=== PATIENT | male | born 1955 | race Caucasian/White ===

== ENCOUNTER → 2021-06-19 10:40 | Outpatient (CLI) | payer OTHER, SELFPAY ==
--- NOTE | 2021-06-19 10:43 | DI.RAD.S_ITS ---
PROCEDURE: XR KNEE LT 3V INDICATIONS: chronic left knee pain TECHNIQUE: 3 views of the knee were acquired. COMPARISON: None. FINDINGS: Bones: No fractures or dislocations. No suspicious bony lesions. Mild appearance of periosteal reaction is noted within the proximal fibula. No priors are available for comparison. There is [id number] medial and patellofemoral compartment narrowing. Minimal periarticular osteophytes. No erosions. Soft tissues: Mild joint effusion. No suspicious soft tissue calcifications. IMPRESSION: Medial and patellofemoral arthritic changes as above. Mild appearance of periosteal reaction within the proximal femur of indeterminate age. No priors are available for comparison. If clinical concern persists, bone scan may be obtained for further evaluation. Dictated by: Jeanine Loyola M.D. on 06/19/2021 at 15:29 Approved by: Jeanine Loyola M.D. on 06/19/2021 at 15:30
== END ==
PROVIDERS: Family Provider Family Medicine; PCP Family Medicine; Referring Provider Family Medicine; Visit Provider Family Medicine
DX: M25.562 Pain in left knee (principal); G89.29 Other chronic pain
CPT/HCPCS: 73562

== ENCOUNTER → 2021-10-21 13:30 | Outpatient (CLI) | payer OTHER, SELFPAY ==
[2021-10-21 15:14] LABS: Add Manual Diff / Slide Review NO; Basophils Absolute Auto 0 /uL (0-100); Basophils Percent Auto 0.3 % (0-2); Eosinophils Absolute Auto 0 /uL (0-450); Eosinophils Percent Auto 0.5 % (2-4); Hematocrit 43.8 % (41-53); Hemoglobin 15.4 g/dL (13.5-17.5); Lymphocytes Absolute Auto 1400 /uL (1100-4500); Lymphocytes Percent Auto 23.8 % (25-40); Mean Corpuscular HGB Conc 35.1 % (30-36); Mean Corpuscular Hemoglobin 32.2 PG (26-34); Mean Corpuscular Volume 91.8 fL (80-100); Monocytes Absolute Auto 400 /uL (0-900); Monocytes Percent Auto 7.3 % (3-14); Neutrophils Absolute Auto 4100 /uL (1500-7000); Neutrophils Percent Auto 68.1 % (50-75); Platelet Count 230 X10^3/uL (150-400); Red Blood Cell Count 4.78 X10^6/uL (4.5-5.9); Red Cell Distribution Width 13.6 % (11.6-14.8)
[2021-10-21 15:44] LABS: Alanine Aminotransferase 24 IU/L (<50); Albumin 4.6 g/dL (3.5-5.0); Albumin Globulin Ratio 1.5 (1.0-2.8); Alkaline Phosphatase 83 U/L (38-126); Aspartate Aminotransferase 28 IU/L (17-59); Bilirubin Total 0.4 mg/dL (0.2-1.3); Blood Urea Nitrogen 13 mg/dL (9-20); Calcium 9.1 mg/dL (8.4-10.2); Carbon Dioxide 27 mmol/L (22-32); Chloride 104 mmol/L (98-107); Cholesterol 201 mg/dL (140-199); Estimated Glomerular Filt Rate > 60 mL/min (>60); Glucose 64 mg/dL (80-110); HDL Cholesterol 41 mg/dL (40-60); HEMOLYSIS 22 (0-50); LDL Cholesterol Calculated 97 mg/dL (<100); Potassium 4.3 mmol/L (3.4-5.1); Sodium 140 mmol/L (137-145); Total Protein 7.6 g/dL (6.3-8.2); Triglycerides 315 mg/dL (35-150)
[2021-10-21 16:14] LABS: Prostate Specific Antigen Scrn 1.13 ng/mL (0.1-4.0); TSH w/ Reflex to FT4 1.51 uIU/mL (0.47-4.68)
[2021-10-22 11:24] LABS: Hemoglobin A1C% w Est Avg Glu 5.4 % (4.0-6.0)
== END ==
PROVIDERS: Family Provider Family Medicine; PCP Family Medicine; Referring Provider Family Medicine; Visit Provider Family Medicine
DX: F41.8 Other specified anxiety disorders (principal); G89.4 Chronic pain syndrome; N40.0 Benign prostatic hyperplasia without lower urinary tract symptoms; Z12.5 Encounter for screening for malignant neoplasm of prostate; R73.9 Hyperglycemia, unspecified
CPT/HCPCS: 36415; 80053; 80061; 83036; 84443; 85025; G0103

== ENCOUNTER → 2021-10-30 08:59 | Outpatient (CLI) | payer OTHER, SELFPAY ==
[2021-10-31 12:12] LABS: Fecal Immunochemical Test Positive (Negative)
== END ==
PROVIDERS: Family Provider Family Medicine; PCP Family Medicine; Referring Provider Family Medicine; Visit Provider Family Medicine
DX: Z12.11 Encounter for screening for malignant neoplasm of colon (principal)
CPT/HCPCS: 82274

== ENCOUNTER → 2022-01-14 09:25 | Outpatient (CLI) | payer OTHER, SELFPAY ==
[2022-01-14 13:07] LABS: COVID19 -Nasal RAPID Negative (Negative)
== END ==
PROVIDERS: Family Provider Family Medicine; PCP Family Medicine; Visit Provider Surgery
DX: Z20.822 Contact with and (suspected) exposure to COVID-19 (principal); Z01.812 Encounter for preprocedural laboratory examination
CPT/HCPCS: 87635; C9803

== ENCOUNTER 2022-01-15 13:15 | Day surgery (SDC) | payer OTHER, SELFPAY ==
--- NOTE | 2022-01-15 | PATH_ITS ---
[facility] Accession Number: [id number] . 01 Material submitted: . PART A: colon - ASCENDING COLON POLYP PART B: colon - PROXIMAL TRANSVERSE COLON POLYP . 01 Diagnosis: A. Ascending Colon Polyp, Biopsy: Tubular adenoma. . B. Proximal Transverse Colon Polyp, Biopsy: Tubular adenoma. MRV 01/19/2022 1138 Local . 01 Electronically signed: . Santana Mistry MD, PhD, Pathologist NPI- [id number] . 01 Gross description: . Part A: ASCENDING COLON POLYP: Received in formalin are 2 fragment(s) of navarro, soft tissue measuring 0.5 x 0.3 x 0.2 cm to 0.4 x 0.2 x 0.2 cm submitted entirely in 1 cassette(s) Part B: PROXIMAL TRANSVERSE COLON POLYP: Received in formalin are multiple fragment(s) of navarro, soft tissue measuring 0.8 x 0.5 x 0.1 cm in aggregate submitted entirely in 1 cassette(s) /CPE 01/16/2022 0806 Local . 01 Pathologist provided ICD-10: D12.2, D12.3 . 01 CPT . 567976, 377403 Specimen Comment: A courtesy copy of this report has been sent to [phone] Performed at: 01 [facility] [address] [place] [address], [place], [place] [id number] MD Krishna Jj MD Phone: [phone]
[2022-01-15 13:29] VITALS: BP 125/70; PULSE 77; RESP 16; TEMP 36.4; O2SAT 97; BMI 31.7
[2022-01-15] MEDS: LACTATED RINGERS 1,000 ML 150 ML IV (13:36)
--- NOTE | 2022-01-15 13:45 | PM.HP.1 ---
History of Present Illness History of Present Illness Date Patient Seen: 01/15/22 Time Patient Seen: 13:46 Chief complaint: SDC Narrative: Hardeep is a 66-year-old man who is here for a colonoscopy for colon cancer screening. He is never had one before. He has no known family history of colon cancer. Patient History Medical History (Updated 01/15/22 @ 13:46 by Elvis Nunn MD) BPH (benign prostatic hyperplasia) Chronic allergic rhinitis Chronic pain syndrome Chronic sinusitis Mixed anxiety and depressive disorder Osteoarthritis of left knee Family & Social History Social History: household members none Tobacco & Substance use: Smoking Status Former smoker alcohol intake never Substance Use Type marijuana Meds Home Medications and Allergies Home Medications Medication Instructions Recorded Confirmed Type aripiprazole 15 mg tablet 15 mg PO DAILY 06/19/21 01/15/22 History clonazepam 0.5 mg tablet 0.5 mg PO TID 06/19/21 01/15/22 History venlafaxine 150 mg 150 mg PO DAILY 06/19/21 10/21/21 History capsule,extended release 24 hr diclofenac sodium 1 % topical gel 2 g topical QID #100 grams 07/02/21 10/21/21 Rx (Voltaren Arthritis Pain) tamsulosin 0.4 mg capsule 0.4 mg PO BEDTIME #90 caps 11/10/21 01/15/22 Rx sodium sul 1.479 gram-potas ch See Rx Instructions PO PER PKG DIR 12/30/21 Rx 0.188 gram-magnes sul 0.225 gram #24 tabs tablet (Sutab) cetirizine 10 mg tablet 10 mg PO BEDTIME 01/14/22 01/15/22 History fluticasone propionate 50 2 spray intranasal DAILY 01/14/22 01/14/22 History mcg/actuation nasal spray,suspension Allergies Allergy/AdvReac Type Severity Reaction Status Date / Time No Known Drug Allergies Allergy Verified 01/15/22 13:35 Exam Vital Signs (past 8 hours): - 01/15/22 13:29 Temperature 97.6 F Pulse Rate 77 Respiratory Rate 16 Blood Pressure 125/70 Pulse Oximetry 97 Oxygen Delivery Method Room Air Oxygen Delivery Method Room Air Const General: No acute distress Assessment & Plan Assessment and plan (1) Colon cancer screening: Status: Acute Plan We reviewed the risks and benefits of colonoscopy for colon cancer screening and he would like to proceed Time Spent With Patient Critical Care time: I spent a total of [] minutes of critical care time on this patient's care today; this time is exclusive of procedural time.
[2022-01-15] MEDS: fentaNYL 100 MCG/2 ML INJ 175 MCG IV (14:01)
[2022-01-15] MEDS: MIDAZOLAM 5 MG/5 ML VIAL 8 MG IV (14:01)
--- NOTE | 2022-01-15 14:23 | PM.OP.COLON ---
Operative Date/Time/Diagnoses Date of procedure: 01/15/22 Time of procedure: 14:23 Pre-op diagnosis: Colon cancer screening Post-op diagnosis: same Procedure & Clinicians Study performed: Colonoscopy Same procedure as scheduled: Yes Surgeon: Elvis Nunn Procedure Notes Procedure in detail: Surgeon: Elvis Nunn MD Procedure: The patient was brought to the endoscopy suite, placed in left lateral decubitus position. The patient was connected to monitoring devices. A time-out was performed. Sedation was administered. Once the patient was adequately sedated, a digital rectal exam was performed and was normal. The scope was then inserted and advanced to the cecum where the appendiceal orifice was identified and photographed. The scope was then slowly withdrawn over greater than 6 minutes. The mucosa was thoroughly inspected. There was a 5 mm polyp in the ascending colon removed with a cold snare. There was 1 cm sessile polyp in the proximal transverse colon removed with hot snare following a saline lift. Because of its location in the proximal transverse colon tattoo was placed adjacent to the polypectomy site. The remainder of the colon was unremarkable. The scope was retroflexed in the rectum. No abnormalities were noted in the rectum. The scope was straightened and removed. The patient was awakened and brought to recovery. Versed: 8 mg Fentanyl: 175 mcg EBL: 5 mL Findings: A 5 mm ascending colon polyp and 1 cm proximal transverse colon polyp Post-procedure Recommendations: Will call with biopsy results Disposition: PACU
[2022-01-15 14:26] VITALS: BP 114/62; PULSE 61; RESP 16; TEMP 36.7; O2SAT 99
[2022-01-15 14:35] VITALS: BP 121/69; PULSE 67; RESP 16; O2SAT 96
[2022-01-15 14:43] VITALS: BP 114/59; PULSE 59; RESP 16; TEMP 36.4; O2SAT 97
[2022-01-15 14:47] VITALS: BP 115/65; PULSE 59; RESP 16; TEMP 36.7; O2SAT 96
== END 2022-01-15 15:05 | disposition home or self-care (01) ==
PROVIDERS: Family Provider Family Medicine; PCP Family Medicine; Referring Provider Surgery; Visit Provider Surgery
PROC: 0DJD8ZZ Inspection of Lower Intestinal Tract, Via Natural or Artificial Opening Endoscopic (ICD-10-PCS; CPT 45378; principal; 2022-01-15 14:30)
DX: Z12.11 Encounter for screening for malignant neoplasm of colon (principal); D12.2 Benign neoplasm of ascending colon; D12.3 Benign neoplasm of transverse colon
CPT/HCPCS: 45385; 45381; J2250; J3010

== ENCOUNTER → 2022-03-03 14:19 | Outpatient (CLI) | payer OTHER, MEDICARE, SELFPAY ==
[2022-03-03 16:44] LABS: Alanine Aminotransferase 23 IU/L (<50); Albumin 4.5 g/dL (3.5-5.0); Albumin Globulin Ratio 1.3 (1.0-2.8); Alkaline Phosphatase 83 U/L (38-126); Aspartate Aminotransferase 27 IU/L (17-59); BUN Creatinine Ratio 15.7 (6-22); Bilirubin Total 0.4 mg/dL (0.2-1.3); Blood Urea Nitrogen 14 mg/dL (9-20); C-Reactive Protein Quant < 0.5 mg/dL (<1.0); Carbon Dioxide 26 mmol/L (22-32); Chloride 103 mmol/L (98-107); Estimated Glomerular Filt Rate > 60 mL/min (>60); Globulin 3.5 g/dL (1.7-4.1); Glucose 66 mg/dL (80-110); HEMOLYSIS < 15 (0-50); Potassium 3.8 mmol/L (3.4-5.1); Sodium 139 mmol/L (137-145); Uric Acid 5.2 mg/dL (3.5-8.5)
== END ==
PROVIDERS: Family Provider Family Medicine; PCP Family Medicine; Referring Provider Family Medicine; Visit Provider Family Medicine
DX: M10.9 Gout, unspecified (principal); R19.7 Diarrhea, unspecified; R25.2 Cramp and spasm
CPT/HCPCS: 36415; 80053; 84550; 86140

== ENCOUNTER → 2022-03-05 10:27 | Outpatient (CLI) | payer OTHER, SELFPAY ==
[2022-03-09 16:08] LABS: Calprotectin, Stool < 16 ug/g (0-120)
== END ==
PROVIDERS: Family Provider Family Medicine; PCP Family Medicine; Referring Provider Family Medicine; Visit Provider Family Medicine
DX: R19.7 Diarrhea, unspecified (principal); R25.2 Cramp and spasm
CPT/HCPCS: 83993

== ENCOUNTER → 2022-10-20 13:01 | Outpatient (CLI) | payer OTHER, SELFPAY ==
[2022-10-20 13:37] LABS: Add Manual Diff / Slide Review NO; Basophils Absolute Auto 0 /uL (0-100); Basophils Percent Auto 0.5 % (0-2); Eosinophils Absolute Auto 0 /uL (0-450); Eosinophils Percent Auto 0.3 % (2-4); Hematocrit 43.1 % (41-53); Hemoglobin 14.9 g/dL (13.5-17.5); Lymphocytes Absolute Auto 1200 /uL (1100-4500); Lymphocytes Percent Auto 18.6 % (25-40); Mean Corpuscular HGB Conc 34.5 % (30-36); Mean Corpuscular Hemoglobin 32.5 PG (26-34); Mean Corpuscular Volume 94.1 fL (80-100); Monocytes Absolute Auto 200 /uL (0-900); Monocytes Percent Auto 3.9 % (3-14); Neutrophils Absolute Auto 4900 /uL (1500-7000); Neutrophils Percent Auto 76.7 % (50-75); Platelet Count 216 X10^3/uL (150-400); Red Blood Cell Count 4.58 X10^6/uL (4.5-5.9); Red Cell Distribution Width 13.7 % (11.6-14.8); White Blood Cell Count 6.4 X10^3/uL (4.5-11.0)
[2022-10-20 14:15] LABS: Alanine Aminotransferase 19 IU/L (<50); Albumin 4.2 g/dL (3.5-5.0); Albumin Globulin Ratio 1.6 (1.0-2.8); Alkaline Phosphatase 78 U/L (38-126); Aspartate Aminotransferase 19 IU/L (17-59); BUN Creatinine Ratio 13.5 (6-22); Bilirubin Total 0.3 mg/dL (0.2-1.3); Blood Urea Nitrogen 12 mg/dL (9-20); Calcium 8.7 mg/dL (8.4-10.2); Carbon Dioxide 31 mmol/L (22-32); Chloride 101 mmol/L (98-107); Cholesterol 200 mg/dL (140-199); Estimated Glomerular Filt Rate > 60 mL/min (>60); Globulin 2.7 g/dL (1.7-4.1); Glucose 109 mg/dL (80-110); HDL Cholesterol 42 mg/dL (40-60); HEMOLYSIS < 15 (0-50); LDL Cholesterol Calculated 125 mg/dL (<100); Potassium 4.1 mmol/L (3.4-5.1); Sodium 138 mmol/L (137-145); Total Protein 6.9 g/dL (6.3-8.2); Triglycerides 163 mg/dL (35-150)
[2022-10-20 14:38] LABS: Prostate Specific Antigen Scrn 1.22 ng/mL (0.1-4.0)
[2022-10-20 14:39] LABS: TSH w/ Reflex to FT4 0.98 uIU/mL (0.47-4.68)
== END ==
PROVIDERS: Family Provider Family Medicine; PCP Family Medicine; Referring Provider Family Medicine; Visit Provider Family Medicine
DX: E16.2 Hypoglycemia, unspecified (principal); E78.5 Hyperlipidemia, unspecified; F41.8 Other specified anxiety disorders; Z12.5 Encounter for screening for malignant neoplasm of prostate
CPT/HCPCS: 36415; 80053; 80061; 84443; 85025; G0103

== ENCOUNTER → 2022-10-29 07:36 | Outpatient (CLI) | payer OTHER, SELFPAY | PROVIDERS: Family Provider Family Medicine; PCP Family Medicine; Referring Provider Family Medicine; Visit Provider Family Medicine | DX: R00.2 Palpitations (principal); Z00.8 Encounter for other general examination | CPT/HCPCS: 93246 ==

== ENCOUNTER → 2023-01-11 06:46 | Outpatient (CLI) | payer OTHER, SELFPAY ==
--- NOTE | 2023-01-11 06:48 | DI.RAD.S_ITS ---
PROCEDURE: XR CHEST 2V INDICATIONS: chest discomfort TECHNIQUE: 2 views of the chest were acquired. COMPARISON: None. FINDINGS: Surgical changes and devices: None. Lungs and pleura: Lungs are clear. No pleural effusions or pneumothorax. Mediastinum: Mediastinal contours are normal. Heart size is normal. Bones and chest wall: No suspicious bony abnormalities. Soft tissues appear unremarkable. IMPRESSION: Normal two view chest x-ray Approved by: Phong Orourke M.D. on 01/11/2023 at 15:50
[2023-01-13 19:37] LABS: Fecal Immunochemical Test Positive (Negative)
== END ==
PROVIDERS: Family Provider Family Medicine; PCP Family Medicine; Referring Provider Family Medicine; Visit Provider Family Medicine
DX: R07.89 Other chest pain (principal); Z12.11 Encounter for screening for malignant neoplasm of colon
CPT/HCPCS: 71046; 82274

== ENCOUNTER → 2023-01-18 13:52 | Outpatient (CLI) | payer OTHER, SELFPAY ==
--- NOTE | 2023-01-22 18:31 | DI.NM.S_ITS ---
DATE OF SERVICE: 01/18/2023 PROCEDURE PERFORMED: Exercise treadmill stress and rest myocardial perfusion imaging with gating to assess ejection fraction and regional wall motion. ORDERING PROVIDER: Dr. Noah Haney. INDICATIONS: The patient is a 67-year-old male with anxiety, palpitations, and exertional back pain. EXERCISE TREADMILL TESTING: The patient was able to exercise for 5 minutes on a standard Baldo protocol with an additional 52 seconds at a reduced rate, suggesting moderate-severely reduced exercise capacity with an SCARLET of +32%. He had a normal heart rate and blood pressure response to exercise, achieving a maximum heart rate of 137 bpm (88% of his predicted maximum). He had no chest discomfort, back pain, or other anginal symptoms. His resting ECG shows sinus rhythm with normal ST- segment. With stress, there are no significant ST-segment shifts or arrhythmias. At 3 minutes, 50 seconds of exercise at a heart rate of 134 bpm, 27.5 millicuries of technetium-99m Myoview was injected and he was imaged 20 minutes later using a gated SPECT acquisition protocol. Four days earlier, while at rest, he had been injected with 26.6 millicuries of technetium-99m Myoview and was imaged 15 minutes later, again using a gated SPECT acquisition protocol. FINDINGS: 1. There is fairly good myocardial tracer uptake without any obvious artifacts. While the lung-heart ratio is mildly elevated at 0.44, which can be a sign of pulmonary congestion, this is not visually evident and is nonspecific. The TID ratio is normal at 0.93. 2. Quantitated gated SPECT: Post-stress ejection fraction is 69% without any focal wall motion abnormality. Resting ejection fraction is 62% with a high normal end-diastolic volume of 134 mL. 3. Myocardial perfusion imaging: Post-stress supine images show a fairly normal perfusion pattern with a slight defect in the inferior wall that resolves on the prone images, consistent with diaphragmatic attenuation. The resting images show an identical perfusion pattern without any areas of improvement. IMPRESSION: 1. Normal myocardial perfusion study. 2. Subtle, fixed inferior defect that resolves with prone imaging, consistent with diaphragmatic attenuation. There is no compelling evidence for any myocardial ischemia or previous myocardial infarction. 3. Normal left ventricular systolic function without any focal wall motion abnormality and borderline elevated left ventricular volumes. While the lung-heart ratio is mildly elevated at 0.44, which can be a sign of pulmonary congestion, this is not visually evident and is nonspecific. Clinical correlation is recommended. 4. Moderate-severely reduced exercise capacity without angina or ECG changes of ischemia. No arrhythmias were seen. Noah Heard - DEVAN/paul/krystina doc#: [id number]/job#: [id number] dd: 01/22/2023 16:24:00 dt: 01/22/2023 18:09:00 DICTATING MD/COPIES TO: Dejon Lloyd MD; Noah Haney, EWELINA MNE: ALYSA;
== END ==
PROVIDERS: Family Provider Family Medicine; PCP Family Medicine; Referring Provider Family Medicine; Visit Provider Family Medicine
DX: R00.2 Palpitations (principal); R07.89 Other chest pain; M54.9 Dorsalgia, unspecified
CPT/HCPCS: 78452; 93017; A9502

== ENCOUNTER 2023-01-28 12:53 | Day surgery (SDC) | payer OTHER, SELFPAY ==
[2023-01-28 13:40] VITALS: BP 142/86; PULSE 83; RESP 16; TEMP 36.2; O2SAT 95; BMI 29.5
[2023-01-28] MEDS: LACTATED RINGERS 1,000 ML 84 ML IV (13:40)
--- NOTE | 2023-01-28 14:58 | PM.HP.1 ---
History of Present Illness History of Present Illness Date Patient Seen: 01/28/23 Time Patient Seen: 14:58 Chief complaint: [facility] Narrative: Adolfo is a 67-year-old man who is here for colonoscopy due to a positive fit test. He had a colonoscopy last year with 2 polyps removed 1 of which was 1 cm. [facility] Medical History (Updated 01/28/23 @ 14:59 by Elvis Nunn MD) BPH (benign prostatic hyperplasia) Chronic allergic rhinitis Chronic pain syndrome Chronic sinusitis Hypoglycemia Mixed anxiety and depressive disorder Osteoarthritis of left knee Social History household members: none Smoking Status: Former smoker alcohol intake: never Meds Home Medications and Allergies Home Medications Medication Instructions Recorded Confirmed Type aripiprazole 15 mg tablet 15 mg PO DAILY 06/19/21 01/28/23 History venlafaxine 150 mg 150 mg PO DAILY 06/19/21 01/28/23 History capsule,extended release 24 hr diclofenac sodium 1 % topical gel 2 g topical QID #100 grams 07/02/21 12/31/22 Rx (Voltaren Arthritis Pain) tamsulosin 0.4 mg capsule 0.4 mg PO BID #180 caps 08/13/22 01/28/23 Rx metoprolol succinate 25 mg 12.5 mg PO DAILY #45 tabs 12/31/22 01/28/23 Rx tablet,extended release 24 hr sodium sul 1.479 gram-potas ch See Rx Instructions PO PER PKG DIR 01/18/23 Rx 0.188 gram-magnes sul 0.225 gram #24 tabs tablet (Sutab) Allergies Allergy/AdvReac Type Severity Reaction Status Date / Time No Known Drug Allergies Allergy Verified 01/28/23 13:52 Exam Vital Signs (past 8 hours): - 01/28/23 13:40 Temperature 97.2 F L Pulse Rate 83 Respiratory Rate 16 Blood Pressure 142/86 H Pulse Oximetry 95 Oxygen Delivery Method Room Air Oxygen Delivery Method Room Air Const General: healthy appearing Assessment & Plan Assessment and plan (1) Positive FIT (fecal immunochemical test): Status: Acute Plan We reviewed the risks and benefits of colonoscopy for a positive FIT test and he would like to proceed.
--- NOTE | 2023-01-28 15:30 | PM.OP.COLON ---
Operative Date/Time/Diagnoses Date of procedure: 01/28/23 Time of procedure: 15:30 Pre-op diagnosis: History of polyps and positive fit test Post-op diagnosis: same Procedure & Clinicians Study performed: Colonoscopy Same procedure as scheduled: Yes Surgeon: Elvis Nunn Procedure Notes Procedure in detail: Surgeon: Elvis Nunn MD Anesthesia: Prasanth Hood CRNA Procedure: The patient was brought to the endoscopy suite, placed in left lateral decubitus position. The patient was connected to monitoring devices. A time-out was performed. Sedation was administered. Once the patient was adequately sedated, a digital rectal exam was performed and was normal. The scope was then inserted and advanced to the cecum where the appendiceal orifice was identified and photographed. The scope was then slowly withdrawn over greater than 6 minutes. The mucosa was thoroughly inspected. The area with tattoo ink in the transverse colon was visualized and photographed. No additional polypoid tissue was noted. The scope was retroflexed in the rectum. No other abnormalities were seen. The scope was straightened and removed. The patient was awakened and brought to recovery. Scope withdrawal time: 7 minutes Sedation time: 11 minutes EBL: 0 Findings: Normal colon Post-procedure Recommendations: Colonoscopy in 5 years Disposition: PACU
[2023-01-28 15:34] VITALS: BP 95/58; PULSE 57; RESP 19; TEMP 36.4; O2SAT 97
[2023-01-28 15:40] VITALS: BP 94/62; PULSE 60; RESP 17; O2SAT 97
[2023-01-28 15:45] VITALS: BP 101/64; PULSE 94; RESP 17; TEMP 36.4; O2SAT 98
== END 2023-01-28 16:24 | disposition home or self-care (01) ==
PROVIDERS: Family Provider Family Medicine; PCP Family Medicine; Referring Provider Surgery; Visit Provider Surgery
PROC: 0DJD8ZZ Inspection of Lower Intestinal Tract, Via Natural or Artificial Opening Endoscopic (ICD-10-PCS; CPT 45378; principal; 2023-01-28 14:15)
DX: Z12.11 Encounter for screening for malignant neoplasm of colon (principal); Z86.010 Personal history of colon polyps; R19.5 Other fecal abnormalities
CPT/HCPCS: G0105; J2704

== ENCOUNTER → 2023-04-27 13:20 | Outpatient (CLI) | payer OTHER, SELFPAY ==
--- NOTE | 2023-04-27 13:22 | DI.RAD.S_ITS ---
PROCEDURE: XR HAND LT MIN 3V INDICATIONS: pain between 2/3 digit for 3 weeks TECHNIQUE: 3 views of the hand(s) acquired. COMPARISON: None. FINDINGS: Bones: No fractures or dislocations. Carpal bones are normally aligned. No suspicious bony lesions. Interphalangeal joint space narrowing with osteophytosis. Soft tissues: No suspicious soft tissue calcifications. IMPRESSION: No acute bony abnormality. Mild interphalangeal osteoarthritis, within normal limits for age. Dictated by: Marco Caballero M.D. on 04/27/2023 at 16:08 Approved by: Marco Caballero M.D. on 04/27/2023 at 16:09
== END ==
PROVIDERS: Family Provider Family Medicine; PCP Family Medicine; Referring Provider Physician Assistant; Visit Provider Physician Assistant
DX: M79.642 Pain in left hand (principal); M19.042 Primary osteoarthritis, left hand
CPT/HCPCS: 73130

== ENCOUNTER → 2023-05-05 15:18 | Outpatient (CLI) | payer OTHER, SELFPAY ==
--- NOTE | 2023-05-05 15:20 | DI.RAD.S_ITS ---
PROCEDURE: XR HAND LT MIN 3V INDICATIONS: constant pain proximal base of 1st or 2nd digit CMC joint TECHNIQUE: 3 views of the hand(s) acquired. COMPARISON: [facility], , XR HAND LT MIN 3V, 04/27/2023, 14:37. FINDINGS: Bones: No fractures or dislocations. Carpal bones are normally aligned. No suspicious bony lesions. Interphalangeal joint space narrowing with osteophytosis. Soft tissues: No suspicious soft tissue calcifications. IMPRESSION: No acute bony abnormality. Mild interphalangeal osteoarthritis. Dictated by: Marco Caballero M.D. on 05/05/2023 at 17:19 Approved by: Marco Caballero M.D. on 05/05/2023 at 17:20
== END ==
PROVIDERS: Family Provider Family Medicine; PCP Family Medicine; Referring Provider Physician Assistant; Visit Provider Physician Assistant
DX: M19.042 Primary osteoarthritis, left hand (principal); M79.642 Pain in left hand
CPT/HCPCS: 36415; 73130; 84550

== ENCOUNTER 2023-06-25 12:11 | Emergency (ER) | payer OTHER, MEDICAID, SELFPAY ==
[2023-06-25 12:27] VITALS: BP 133/69; PULSE 63; RESP 20; TEMP 36.5; O2SAT 95; BMI 28.0
[2023-06-25 12:31] VITALS: PULSE 61; O2SAT 99
--- NOTE | 2023-06-25 12:33 | ED_ITS ---
HPI - General Adult General Chief complaint: Arrhythmia/Palpitations Stated complaint: low heart rate Time Seen by Provider: 06/25/23 12:26 Source: patient Mode of arrival: Ambulatory Limitations: no limitations History of Present Illness HPI narrative: Patient is a 68-year-old male who is here for evaluation of a low heart rate. He states that at night when he is sleeping his Apple watch records on his phone that his heart rates are dropping into the 40s and 50s. He is asymptomatic from this. He has no chest pain, lightheadedness, shortness of breath or exercise intolerance. He has not on any medications that block his heart rate. He has had palpitations in the past. Has seen Cardiology. He is never worn a Holter monitor. His low heart rate has been going on for the past week. He contacted his gastroenterology nurse who he saw for the palpitations who advised that he come to the emergency department for evaluation. Related Data Home Medications Medication Instructions Recorded Confirmed aripiprazole 15 mg tablet 15 mg PO DAILY 06/19/21 05/05/23 venlafaxine 150 mg 150 mg PO DAILY 06/19/21 05/05/23 capsule,extended release 24 hr latanoprost 0.005 % eye drops drp EYE-BOTH 03/26/23 05/05/23 Previous Rx's Medication Instructions Recorded meloxicam 15 mg tablet 15 mg PO DAILY #30 tabs 06/03/23 tamsulosin 0.4 mg capsule 0.4 mg PO BID #180 caps 06/04/23 pseudoephedrine HCl 30 mg tablet 30 mg PO Q4-6H PRN nasal 06/22/23 (Nasal Decongestant congestion #60 tabs (pseudoephedrine)) Allergies Allergy/AdvReac Type Severity Reaction Status Date / Time No Known Drug Allergies Allergy Verified 05/05/23 14:42 Review of Systems Constitutional Constitutional: Reports system reviewed and no additional complaints, except as documented Cardiovascular Cardiovascular: Reports system reviewed and no additional complaints, except as documented Respiratory Respiratory: Reports system reviewed and no additional complaints, except as documented Gastrointestinal Gastrointestinal: Reports system reviewed and no additional complaints, except as documented Patient History Medical History Positive FIT (fecal immunochemical test) Colon cancer screening Hypoglycemia Osteoarthritis of left knee Chronic pain syndrome Chronic sinusitis BPH (benign prostatic hyperplasia) Chronic allergic rhinitis Mixed anxiety and depressive disorder Social History household members: none Smoking Status: Former smoker alcohol intake: never Smoking Status: Former smoker Substance Use Type: marijuana Exam Initial Vital Signs Initial Vital Signs: Vital Signs Temperature 97.7 F 06/25/23 12:27 Pulse Rate 63 06/25/23 12:27 Respiratory Rate 20 06/25/23 12:27 Blood Pressure 133/69 06/25/23 12:27 Pulse Oximetry 95 06/25/23 12:27 Oxygen Delivery Method Room Air 06/25/23 12:27 Const General: cooperative, comfortable and No ill appearing Resp Effort & Inspection: normal respiratory effort Auscultation: clear to auscultation bilaterally Cardio Rate: regular rate Rhythm: regular rhythm Neuro General: patient alert, patient awake and moves all extremities Extrem General: normal to inspection Course Orders Ordered: ED Orders 06/25/23 12:23 EKG-12 Lead Stat 06/25/23 12:47 Complete Blood Count AUTO DIFF Stat Comprehensive Metabolic Panel Stat Lipase Stat Vital Signs Vital signs: Vital Signs - 8 hr 06/25/23 12:27 Temperature 97.7 F Pulse Rate 63 Respiratory Rate 20 Blood Pressure 133/69 Pulse Oximetry 95 Oxygen Delivery Method Room Air Medical Decision Making Lab Data 06/25/23 12:47 06/25/23 12:47 Labs: Lab Results 06/25/23 Range/Units 12:47 WBC 4.6 (4.5-11.0) X10^3/uL RBC 4.64 (4.5-5.9) X10^6/uL Hgb 15.0 (13.5-17.5) g/dL Hct 43.7 (41-53) % MCV 94.1 (80-100) fL MCH 32.2 (26-34) PG MCHC 34.3 (30-36) % RDW 13.2 (11.6-14.8) % Plt Count 192 (150-400) X10^3/uL Neut % (Auto) 72.2 (50-75) % Lymph % (Auto) 20.9 L (25-40) % Karnes % (Auto) 6.1 (3-14) % Eos % (Auto) 0.5 L (2-4) % Baso % (Auto) 0.3 (0-2) % Neut # (Auto) 3300 (0867-5494) /uL Lymph # (Auto) 1000 L (4755-0329) /uL Karnes # (Auto) 300 (0-900) /uL Eos # (Auto) 0 (0-450) /uL Baso # (Auto) 0 (0-100) /uL Sodium 138 (137-145) mmol/L Potassium 4.6 (3.4-5.1) mmol/L Chloride 102 (98-107) mmol/L Carbon Dioxide 29 (22-32) mmol/L BUN 10 (9-20) mg/dL Creatinine 0.94 (0.66-1.25) mg/dL Estimated GFR > 60 (>60) mL/min BUN/Creatinine Ratio 10.6 (6-22) Glucose 89 (80-110) mg/dL Calcium 9.3 (8.4-10.2) mg/dL Total Bilirubin 0.7 (0.2-1.3) mg/dL AST 21 (17-59) IU/L ALT 20 (<50) IU/L Alkaline Phosphatase 89 (38-126) U/L Total Protein 7.9 (6.3-8.2) g/dL Albumin 4.5 (3.5-5.0) g/dL Globulin 3.4 (1.7-4.1) g/dL Albumin/Globulin Ratio 1.3 (1.0-2.8) Lipase 253 (23-300) U/L ECG Data Attestation: I personally reviewed and interpreted this ECG as follows: Interpretation: Sinus rhythm Ventricular rate is 64 Normal axis Normal QRS Normal QTC No ST T wave changes MDM Narrative Medical decision making narrative: Patient is asymptomatic here in the ER with a heart rate in the 60s. He appears to be asymptomatic at home as well. His labs are unremarkable. He is sinus rhythm on his EKG. Plan will be to discharge home to have him talk with his gastroenterology nurse about a Holter monitor. He was given return precautions. He expressed understanding and agreement. Discharge Plan Departure Patient Disposition: Home Clinical Impression: Bradycardia Instructions: DI for Bradycardia Activity Restrictions/Additional Instructions: Continue to take all of your medications as directed. Talk with your gastroenterology nurse about the indications for a Holter monitor. Return to the emergency department for new or worsening symptoms. Prescriptions: No Action meloxicam 15 mg tablet 15 mg PO DAILY Qty: 30 3RF tamsulosin 0.4 mg capsule 0.4 mg PO BID Qty: 180 3RF pseudoephedrine HCl [Nasal Decongestant (pseudoeph)] 30 mg tablet 30 mg PO Q4-6H PRN (Reason: nasal congestion) Qty: 60 0RF Rx Instructions: DNExceed 4 doses/24h venlafaxine 150 mg capsule,extended release 24hr 150 mg PO DAILY Rx Instructions: take 2 tabs PO QD. aripiprazole 15 mg tablet 15 mg PO DAILY latanoprost 0.005 % drops EYE-BOTH Referrals: Noah Haney MD [Primary Care Provider] - Stand Alone Forms: Patient Portal/API
--- NOTE | 2023-06-25 12:38 | PC.NURSE ---
Pt came to the emergency department today because he has been experiencing low heart rates in 40s &50s according to his apple watch in his sleep for the past week. He called his tower control operator and his tower control operator told him that he should come to the emergency dept for further evaluation. Pt denies any dizziness, lightheadedness or syncope while awake but states that he doesn't know if he is having any sx in his sleep because he is sleeping. Denies CP and SOB. A&Ox4. VS WNL. [employer] HELPER intact.
[2023-06-25 12:47] VITALS: BP 127/69; PULSE 62; O2SAT 97
[2023-06-25 12:54] LABS: Add Manual Diff / Slide Review NO; Basophils Absolute Auto 0 /uL (0-100); Basophils Percent Auto 0.3 % (0-2); Eosinophils Absolute Auto 0 /uL (0-450); Eosinophils Percent Auto 0.5 % (2-4); Hematocrit 43.7 % (41-53); Lymphocytes Absolute Auto 1000 /uL (1100-4500); Lymphocytes Percent Auto 20.9 % (25-40); Mean Corpuscular HGB Conc 34.3 % (30-36); Mean Corpuscular Hemoglobin 32.2 PG (26-34); Mean Corpuscular Volume 94.1 fL (80-100); Monocytes Absolute Auto 300 /uL (0-900); Monocytes Percent Auto 6.1 % (3-14); Neutrophils Absolute Auto 3300 /uL (1500-7000); Neutrophils Percent Auto 72.2 % (50-75); Platelet Count 192 X10^3/uL (150-400); Red Blood Cell Count 4.64 X10^6/uL (4.5-5.9); Red Cell Distribution Width 13.2 % (11.6-14.8); White Blood Cell Count 4.6 X10^3/uL (4.5-11.0)
[2023-06-25 13:00] VITALS: PULSE 57; O2SAT 97
[2023-06-25 13:06] LABS: Alanine Aminotransferase 20 IU/L (<50); Albumin 4.5 g/dL (3.5-5.0); Albumin Globulin Ratio 1.3 (1.0-2.8); Alkaline Phosphatase 89 U/L (38-126); Aspartate Aminotransferase 21 IU/L (17-59); BUN Creatinine Ratio 10.6 (6-22); Bilirubin Total 0.7 mg/dL (0.2-1.3); Blood Urea Nitrogen 10 mg/dL (9-20); Calcium 9.3 mg/dL (8.4-10.2); Carbon Dioxide 29 mmol/L (22-32); Chloride 102 mmol/L (98-107); Estimated Glomerular Filt Rate > 60 mL/min (>60); Globulin 3.4 g/dL (1.7-4.1); Glucose 89 mg/dL (80-110); HEMOLYSIS < 15 (0-50); Lipase 253 U/L (23-300); Potassium 4.6 mmol/L (3.4-5.1); Sodium 138 mmol/L (137-145); Total Protein 7.9 g/dL (6.3-8.2)
[2023-06-25 13:30] VITALS: PULSE 58; RESP 18; O2SAT 98
== END 2023-06-25 13:43 | disposition home or self-care (01) ==
PROVIDERS: Emergency Provider Emergency Medicine; Family Provider Family Medicine; PCP Family Medicine
DX: R00.1 Bradycardia, unspecified (principal)
CPT/HCPCS: 36415; 80053; 83690; 85025; 93005; 99284

== ENCOUNTER → 2023-09-16 15:44 | Outpatient (CLI) | payer MEDICARE, MEDICAID, SELFPAY ==
--- NOTE | 2023-09-16 15:48 | DI.RAD.S_ITS ---
PROCEDURE: XR KNEE LT 3V INDICATIONS: bilateral knee pain TECHNIQUE: 3 views of the knee were acquired. COMPARISON: [facility], CR, XR KNEE LT 3V, 06/19/2021, 11:49. FINDINGS: Bones: Mild tricompartmental osteoarthritis, unchanged from prior exam. No knee effusion. No acute fracture or dislocation. Soft tissues: No joint effusion. No suspicious soft tissue calcifications. IMPRESSION: No acute bony abnormality or significant effusion. Dictated by: Mine Conway M.D. on 09/16/2023 at 16:35 Approved by: Mine Conway M.D. on 09/16/2023 at 16:36
--- NOTE | 2023-09-16 15:48 | DI.RAD.S_ITS ---
PROCEDURE: XR KNEE RT 3V INDICATIONS: bilateral knee pain TECHNIQUE: 3 views of the knee were acquired. COMPARISON: [facility], CR, XR KNEE LT 3V, 06/19/2021, 11:49. FINDINGS: Bones: Mild tricompartmental osteoarthritis. No acute fracture or dislocation. Soft tissues: No joint effusion. No suspicious soft tissue calcifications. IMPRESSION: No acute bony abnormality or significant effusion. Dictated by: Mine Conway M.D. on 09/16/2023 at 16:36 Approved by: Mine Conway M.D. on 09/16/2023 at 16:37
== END ==
PROVIDERS: Family Provider Family Medicine; PCP Family Medicine; Referring Provider Family Medicine; Visit Provider Family Medicine
DX: M17.0 Bilateral primary osteoarthritis of knee (principal); M25.561 Pain in right knee; M25.562 Pain in left knee; M25.572 Pain in left ankle and joints of left foot
CPT/HCPCS: 73562

== ENCOUNTER → 2023-10-06 14:50 | Outpatient (CLI) | payer MEDICARE, MEDICAID, SELFPAY ==
--- NOTE | 2023-10-06 15:30 | DI.US.S_ITS ---
PROCEDURE: US ABD AORTA ANEURYSM SCREEN INDICATIONS: AAA screen due TECHNIQUE: Real-time scanning was performed of the aorta and proximal common iliac arteries, with image documentation. COMPARISON: None. FINDINGS: Aorta: Abdominal aorta is normal in caliber throughout its length. Proximal: 2.5 cm Mid: 2 cm Distal: 1.8 cm Iliacs: Proximal common iliac arteries are normal in caliber. Right: 1.5 cm Left: 1.1 cm IMPRESSION: No abdominal aortic aneurysm. Dictated by: Patrick Moyer M.D. on 10/06/2023 at 16:35 Approved by: Patrick Moyer M.D. on 10/06/2023 at 16:36
== END ==
LOC: US 14:50
PROVIDERS: Family Provider Family Medicine; PCP Family Medicine; Referring Provider Family Medicine; Visit Provider Family Medicine
DX: Z13.6 Encounter for screening for cardiovascular disorders (principal); Z87.891 Personal history of nicotine dependence
CPT/HCPCS: 76706

== ENCOUNTER → 2023-10-26 08:03 | Outpatient (CLI) | payer MEDICARE, MEDICAID, SELFPAY ==
[2023-10-26 10:00] LABS: Add Manual Diff / Slide Review NO; Basophils Absolute Auto 0 /uL (0-100); Basophils Percent Auto 0.4 % (0-2); Eosinophils Absolute Auto 0 /uL (0-450); Eosinophils Percent Auto 0.4 % (2-4); Hematocrit 45.7 % (41-53); Hemoglobin 15.6 g/dL (13.5-17.5); Lymphocytes Absolute Auto 1300 /uL (1100-4500); Lymphocytes Percent Auto 20.2 % (25-40); Mean Corpuscular Hemoglobin 32.7 PG (26-34); Mean Corpuscular Volume 96.1 fL (80-100); Monocytes Absolute Auto 400 /uL (0-900); Monocytes Percent Auto 6.4 % (3-14); Neutrophils Absolute Auto 4700 /uL (1500-7000); Neutrophils Percent Auto 72.6 % (50-75); Platelet Count 210 X10^3/uL (150-400); Red Blood Cell Count 4.75 X10^6/uL (4.5-5.9); Red Cell Distribution Width 13.8 % (11.6-14.8); White Blood Cell Count 6.5 X10^3/uL (4.5-11.0)
[2023-10-26 10:33] LABS: Alanine Aminotransferase 28 IU/L (<50); Albumin 4.5 g/dL (3.5-5.0); Albumin Globulin Ratio 1.7 (1.0-2.8); Alkaline Phosphatase 81 U/L (38-126); Aspartate Aminotransferase 28 IU/L (17-59); BUN Creatinine Ratio 12.6 (6-22); Bilirubin Total 0.6 mg/dL (0.2-1.3); Blood Urea Nitrogen 11 mg/dL (9-20); Carbon Dioxide 29 mmol/L (22-32); Chloride 105 mmol/L (98-107); Cholesterol 235 mg/dL (140-199); Estimated Glomerular Filt Rate > 60 mL/min (>60); Globulin 2.6 g/dL (1.7-4.1); Glucose 93 mg/dL (80-110); HDL Cholesterol 46 mg/dL (40-60); HEMOLYSIS < 15 (0-50); LDL Cholesterol Calculated 154 mg/dL (<100); Potassium 4.8 mmol/L (3.4-5.1); Sodium 139 mmol/L (137-145); Total Protein 7.1 g/dL (6.3-8.2); Triglycerides 174 mg/dL (35-150)
[2023-10-26 11:01] LABS: Prostate Specific Antigen 1.14 ng/mL (0.10-4.00)
[2023-10-27 07:36] LABS: Apolipoprotein B 122 mg/dL (<90)
== END ==
PROVIDERS: Family Provider Family Medicine; PCP Family Medicine; Referring Provider Family Medicine; Visit Provider Family Medicine
DX: E78.5 Hyperlipidemia, unspecified (principal); N40.0 Benign prostatic hyperplasia without lower urinary tract symptoms; E16.2 Hypoglycemia, unspecified
CPT/HCPCS: 36415; 80053; 80061; 82172; 84153; 85025

== ENCOUNTER → 2023-12-15 15:35 | Outpatient (CLI) | payer MEDICARE, MEDICAID, SELFPAY ==
--- NOTE | 2023-12-15 15:37 | DI.RAD.S_ITS ---
PROCEDURE: XR KNEE LT 3V INDICATIONS: Left knee Pain TECHNIQUE: 3 views of the knee were acquired. COMPARISON: [facility], , XR KNEE LT 3V, 09/16/2023, 15:57. FINDINGS: Bones: Normal mineralization. No fractures. Mild medial compartment joint space loss and spur formation. Mild lateral compartment spurring and subcortical sclerosis. Soft tissues: No knee joint effusion. No suspicious calcifications. IMPRESSION: Mild osteoarthritic changes in the knee. No acute process. Dictated by: Alicia Marsh M.D. on 12/15/2023 at 17:42 Approved by: Alicia Marsh M.D. on 12/15/2023 at 17:44
--- NOTE | 2023-12-15 15:37 | DI.RAD.S_ITS ---
PROCEDURE: XR FOOT LT MIN 3V INDICATIONS: Left Foot Pain TECHNIQUE: 3 views of the foot were acquired. COMPARISON: None. FINDINGS: Bones: No acute fractures or malalignment. There is hammertoe deformity two through five of the digits. Slight flattening of the 2nd metatarsal head. Possible juxta-articular lucency at the 3rd proximal IP joint. Mild articular surface flattening and spurring at the 1st MTP joint. Moderate degenerative joint space loss and spurring at the TMT joints. Moderate plantar calcaneal spur. Mild spurring along the dorsal midfoot joints. Mild anterior tibiotalar spur formation. Soft tissues: No tibiotalar joint effusion. Achilles tendon appears normal. IMPRESSION: Scattered various degenerative changes as described appear chronic. Dictated by: Alicia Marsh M.D. on 12/15/2023 at 17:40 Approved by: Alicia Marsh M.D. on 12/15/2023 at 17:42
== END ==
PROVIDERS: Family Provider Family Medicine; PCP Family Medicine; Referring Provider Family Medicine; Visit Provider Family Medicine
DX: M20.42 Other hammer toe(s) (acquired), left foot (principal); M79.672 Pain in left foot; M25.562 Pain in left knee
CPT/HCPCS: 73562; 73630

== ENCOUNTER → 2024-01-26 06:51 | Outpatient (CLI) | payer MEDICARE, MEDICAID, SELFPAY ==
[2024-01-26 08:50] LABS: Alanine Aminotransferase 32 IU/L (<50); Albumin 4.4 g/dL (3.5-5.0); Albumin Globulin Ratio 1.8 (1.0-2.8); Alkaline Phosphatase 85 U/L (38-126); Aspartate Aminotransferase 29 IU/L (17-59); BUN Creatinine Ratio 6.9 (6-22); Bilirubin Total 0.5 mg/dL (0.2-1.3); Blood Urea Nitrogen 7 mg/dL (9-20); Calcium 8.9 mg/dL (8.4-10.2); Carbon Dioxide 25 mmol/L (22-32); Chloride 102 mmol/L (98-107); Cholesterol 153 mg/dL (140-199); Estimated Glomerular Filt Rate > 60 mL/min (>60); Globulin 2.5 g/dL (1.7-4.1); Glucose 94 mg/dL (80-110); HDL Cholesterol 39 mg/dL (40-60); HEMOLYSIS < 15 (0-50); LDL Cholesterol Calculated 76 mg/dL (<100); Potassium 3.9 mmol/L (3.4-5.1); Sodium 137 mmol/L (137-145); Total Protein 6.9 g/dL (6.3-8.2); Triglycerides 188 mg/dL (35-150)
[2024-01-27 05:30] LABS: Apolipoprotein B 82 mg/dL (<90)
== END ==
PROVIDERS: Family Provider Family Medicine; PCP Family Medicine; Referring Provider Family Medicine; Visit Provider Family Medicine
DX: E78.5 Hyperlipidemia, unspecified (principal); E16.2 Hypoglycemia, unspecified; F41.8 Other specified anxiety disorders
CPT/HCPCS: 36415; 80053; 80061; 82172

== ENCOUNTER 2024-04-24 07:43 | Day surgery (SDC) | payer MEDICARE, MEDICAID, SELFPAY ==
[2024-04-20 12:39] VITALS: BMI 32.1
[2024-04-24] VITALS (10 sets, daily range): BP systolic 116–142; BP diastolic 57–72; PULSE 68–81; RESP 11–22; TEMP 36.3–36.9; O2SAT 95–99; BMI 31.6
--- NOTE | 2024-04-24 | PATH_ITS ---
[facility] Accession Number: [id number] No. of containers..01 Tissue . 01 Material submitted: . prostate - PROSTATE CHIPS . 01 Diagnosis: PROSTATE CHIPS, TRANSURETHRAL PROSTATE TISSUE RESECTION (TUPTR): Benign stromal/fibromuscular tissue, weight 2 grams, with hypertrophy. Scant benign urothelium also present. Negative for atypia or malignancy. [facility] 04/26/2024 1428 Local . 01 Electronically signed: . Jenni Madrigal MD, Pathologist NPI- [id number] . 01 Gross description: . Received in formalin with two patient identifiers and prostate chips, are multiple navarro soft tissue fragments weighing 2 grams and aggregating to 2.8 x 2.8 x 0.8 cm. Submitted entirely in A1-A2. ([id number]) /MRV 04/25/20242035 Local . 01 Pathologist provided ICD-10: N40.1 . 01 CPT . 249322 Specimen Comment: A courtesy copy of this report has been sent to [facility] Pathology Performed at: [address] [address], [place], [place] [id number] MD Krishna Jj MD Phone: [phone]
[2024-04-24] MEDS: LACTATED RINGERS 1,000 ML 21 ML IV ×2 (08:29→10:34)
--- NOTE | 2024-04-24 09:17 | PM.PREOP ---
Pre-operative Note COVID-19 COVID-19 status: Not tested Interval Note History & Physical reviewed/Exam performed by Physician: Yes Changes to H&P: No
[2024-04-24] MEDS: CEFAZOLIN 2 GM/100 ML PREMIX 100 ML IV (09:44)
--- NOTE | 2024-04-24 09:51 | SUR.OPER ---
Lithotomy on padded OR bed, head on pillow, arms secured on padded arm boards at <90 degrees abduction. Legs secured in padded yellow fins stirrups.
--- NOTE | 2024-04-24 11:08 | PM.OP.1 ---
Procedure & Clinicians Procedure: Cystoscopy Aquablation Same procedure as scheduled: Yes Indications: 69 y/o M w/ symptoms consistent with BPH and LUTS that are currently managed with Tamsulosin 0.8mg daily. He is not happy with his urinary habits at the moment. Of note, it is very important for him to have antegrade ejaculation as his girlfriend would prefer to have children. Surgeon: Catrachito Ruffin Click Yes if Unassisted: Yes Anesthesia Type: General Operative Notes Findings: Coaptating lateral prostatic lobes, no intravesical median lobe, small prostate Closure Type: not applicable Specimen(s): other (prostate chips) Applied: catheter Estimated Blood Loss (mL): 50 Blood products transfused: none Procedure in detail: After informed consent was obtained, the patient was identified brought to the operating room where he was placed in his supine position on the table.? Once there anesthesia was induced and maintained.? Ensuring an adequate level of anesthesia the patient was transitioned to the lithotomy position where after time-out he was prepped.? After prepping, ensuring an adequate level of anesthesia, administration IV antibiotics and time-out 60 cc of ultrasound gel was instilled within the rectum and the ultrasound probe which had been attached to the TRUS stepper which was attached to the TRUS stepper articulating arm which was secured to the bed was advanced into the rectum under direct vision via the ultrasound.? The ultrasound probe was then aligned and confirmation made that the prostate was centered and aligned in both the sagittal and transverse views.? The bladder neck, verumontanum, central and transitional zones were identified.? With the ultrasound in place and adjusted the patient was then draped in a sterile fashion. With the patient draped the 24 Malagasy aqua beam handpiece was then inserted through the urethra and advanced into the bladder.? Cystoscopy was then performed and no concerning bladder mass or lesions were noted.? Bilateral ureteral orifices were noted to be orthotopic in nature.? As the cystoscope was advanced the level of the sphincter, verumontanum, bladder neck were all identified via ultrasound and under direct vision.? The aqua beam hand place was then secured to the handpiece articulating arm which had been secured to the bed.? The Aquablation handpiece and TRUS probe were confirmed to be parallel and colinear.? Confirmation was then made that the aqua beam handpiece and nozzle was centered and anterior to the bladder neck. ?The cystoscope was then retracted under direct vision in the sphincter and verumontanum were identified.? The tip of the cystoscope was then placed proximal to the external sphincter.? Compression was applied with the TRUS probe to the prostate.? The alignment of the TRUS probe and aqua beam handpiece was once again confirmed.? Horizontal alignment of the handpiece water jet was then performed.? With these adjustments made, the treatment zones were then planned using real-time ultrasound.? In the largest transverse view of the prostate the depth and radial angles were determined and set again in the transverse view of the prostate.? In the longitudinal and sagittal view the Aquablation nozzle was identified and its position registered with the software and robot.? The treatment contours were then determined and adjusted to reflect the intended margins of resection.? Following our plan confirmation, the Aquablation resection treatment was started.? A 2nd pass was then completed in similar fashion after the 1st pass had been completed.? At this point, the Aqua hand piece was removed from the urethra. The 26Fr resectoscope was then inserted into the urethra and cystoscopy was repeated.? The Elik air conditioning insulation installer was utilized to evacuate the blood clots from the bladder.? The bladder neck was then resected using the bipolar Gyrus loop.? Bilateral ureteral orifices were again identified and noted to be intact at case end.? Hemostasis was obtained and noted to be excellent at case end.? The resectoscope was then removed and a 24Fr Carri 3-way hematuria catheter was inserted through the urethra and into the bladder.? 45cc of sterile water was utilized for balloon insufflation.? Efflux was noted to be clear at case end.? Anesthesia was reversed, he was extubated in the OR and transferred to the PACU in stable condition for recovery. Complications: none Post-operative Condition: stable Disposition: PACU Plan for aftercare: Will continue to run CBI in the PACU for a few hours. Should his efflux remain relatively clear as the CBI is titrated down, he will be discharged home with his catheter in place and return to Urology clinic on 26 Apr 2024 for a voiding trial. Should his efflux become more red or have significant clots, will admit overnight for CBI.
== END 2024-04-24 14:29 | disposition home or self-care (01) ==
PROVIDERS: Family Provider Family Medicine; PCP Family Medicine; Referring Provider Urology; Visit Provider Urology
PROC: 0VT08ZZ Resection of Prostate, Via Natural or Artificial Opening Endoscopic (ICD-10-PCS; CPT 0421T; principal; 2024-04-24 09:45)
DX: N40.1 Benign prostatic hyperplasia with lower urinary tract symptoms (principal); N39.41 Urge incontinence; R35.1 Nocturia; R33.9 Retention of urine, unspecified; R39.11 Hesitancy of micturition
CPT/HCPCS: 0421T; 82962; C2596; J0330; J0690; J1100; J2405; J2704; J3010

== ENCOUNTER → 2024-04-26 13:35 | Outpatient (CLI) | payer MEDICARE, MEDICAID, SELFPAY | PROVIDERS: Family Provider Family Medicine; PCP Family Medicine; Visit Provider Urology | DX: N40.1 Benign prostatic hyperplasia with lower urinary tract symptoms (principal) | CPT/HCPCS: 87086 ==

== ENCOUNTER → 2024-06-20 11:13 | Outpatient (CLI) | payer MEDICARE, MEDICAID, SELFPAY ==
[2024-06-20 12:15] LABS: Alanine Aminotransferase 34 IU/L (<50); Albumin 4.6 g/dL (3.5-5.0); Albumin Globulin Ratio 1.7 (1.0-2.8); Alkaline Phosphatase 78 U/L (38-126); Aspartate Aminotransferase 30 IU/L (17-59); BUN Creatinine Ratio 11.6 (6-22); Bilirubin Total 0.2 mg/dL (0.2-1.3); Blood Urea Nitrogen 11 mg/dL (9-20); Calcium 9.5 mg/dL (8.4-10.2); Carbon Dioxide 29 mmol/L (22-32); Chloride 105 mmol/L (98-107); Estimated Glomerular Filt Rate > 60 mL/min (>60); Globulin 2.7 g/dL (1.7-4.1); Glucose 84 mg/dL (80-110); HEMOLYSIS < 15 (0-50); Potassium 4.2 mmol/L (3.4-5.1); Sodium 140 mmol/L (137-145); Total Protein 7.3 g/dL (6.3-8.2)
== END ==
PROVIDERS: Family Provider Family Medicine; PCP Family Medicine; Referring Provider Family Medicine; Visit Provider Family Medicine
DX: E78.5 Hyperlipidemia, unspecified (principal); E16.2 Hypoglycemia, unspecified; R25.2 Cramp and spasm
CPT/HCPCS: 36415; 80053

== ENCOUNTER 2024-08-08 08:15 | Outpatient (RCR) | payer MEDICARE, MEDICAID, SELFPAY ==
--- NOTE | 2024-07-06 15:48 | PT.OIE ---
Current Diagnoses Overactive bladder (07/06/24) Past Medical History (Last Reviewed 06/07/24 @ 08:53 by Catrachito Ruffin DO) BPH (benign prostatic hyperplasia) Chronic allergic rhinitis Chronic pain syndrome Chronic sinusitis Colon cancer screening History of depression Hypoglycemia Mixed anxiety and depressive disorder RAMILA on CPAP Osteoarthritis of left knee Positive FIT (fecal immunochemical test) Varicose vein of leg Visit Care Team Role Provider Type Noah Haney MD Family Provider Physician Primary Care Provider Specialty: Family Practice Address: [address] [place] [address], [id number] Email: [email or web address] Catrachito Ruffin DO Attending Provider Physician Referring Provider Specialty: Urology Address: [address] [place] [address], [address] Fax: Email: Physical Therapy Initial Evaluation PT-OP-A Visit Information Start: 07/06/24 08:18 Freq: Status: Active Protocol: Document 07/06/24 08:15 [facility] (Rec: 07/06/24 08:44 [facility] [id number]) Out-Patient Physical Therapy Visit Information Visit Information Visit Type Initial Evaluation Visit Start Time 08:20 Visit Stop Time 09:05 Visit Number 1 Evaluation Information Evaluation Date 07/06/24 PT-OP-B Current Condition Start: 07/06/24 08:18 Freq: Status: Active Protocol: Document 07/06/24 08:15 [facility] (Rec: 07/06/24 08:44 [facility] [id number]) Current Condition History of Current Condition Onset Date March 2024 Current Complaints urinary urgency, nocturia, retrograde egaculation History of Current Condition pt reports orgasm does not produce any fluid and feels it may be blocked by a blood clot. Aquablasion in march 2024 to remove the prostate due to enlarged prostate that was causing incontinence. Noah notes he is still noting incontinence but he does note he has a much stronger urinary stream and it does not take as long to empty his bladder. Noah reports he drinks a pot of coffee in the am and then drinks 3-4 30 oz of water per day. Leakage is mainly with urgency. He is working on a sleep issue and he has had a surgery to install the inspire now and he is still healing from that. He notes he currently wakes 1 -3 times per night, he has sleep apnea and it makes it difficult to get enought sleep . His inspire was just turned on 06/27/24. So far he has gotten 3 night of 8 hours sleep with it so he is encouraged. PT-OP-I Pelvic Floor Start: 07/06/24 08:18 Freq: Status: Active Protocol: Document 07/06/24 08:15 [facility] (Rec: 07/06/24 09:23 [facility] [id number]) Pelvic Floor Assessment Urine Pelvic Floor Surgery Yes: Aquablation March 2024 Urinary Symptoms Urge Sensation Voiding Frequency 11-14 times per day Nocturia 2-3 Contraction Ability Voluntary Contraction Weak Voluntary Relaxation Weak Muscle Endurance (Seconds) 5 Comments Pelvic Floor Comments pt was educated on anterior pelvic floor facilitation as this was difficult for him to initiate. He was able to hold x 5 seconds for consequtive repeitions. PT-OP-Q Treatments Start: 07/06/24 08:18 Freq: Status: Active Protocol: Document 07/06/24 08:15 [facility] (Rec: 07/06/24 08:44 [facility] [id number]) Self-Care/Home Management Treatment Education Other Education pt was educated in urge deference technique, bladder irritants and pelvic floor endurance holds PT-OP-T Assessment and Plan Start: 07/06/24 08:18 Freq: Status: Active Protocol: Document 07/06/24 08:15 [facility] (Rec: 07/06/24 09:23 [facility] [id number]) Physical Therapy Assessment Rehab Potential Rehabilitation Potential Good Evaluation Complexity Number of Personal Factors/Comorbidities 3 or More Number of Body Systems Impaired 3 Clinical Presentation at Evaluation Evolving Impairments Impairments Activity Tolerance,Functional Activities,Sensation,Strength Goals 3 Impairment pt lacks a HEP for pelvic floor strength and endurance training Machine Tool Operator Goal (LTG) Noah is Ind with a HEP for pelvic floor strength and endurance training. LTG Duration 8 weeks 2 Impairment Decreased pelvic floor endurance Short Term Goal (STG) Noah is able to sustain a pelvic floor contraction in supine x 10 seconds STG Duration 4 weeks Machine Tool Operator Goal (LTG) Noah is able to sustain a pelvic floor contraction in standing x 5 sec or greater LTG Duration 8 weeks 1 Impairment urinary urgency and frequency and nocturia Short Term Goal (STG) Noah is edcuated on bladder irritants, urge deference technique and bladder retraining STG Duration 3 weeks Assisted Goal (LTG) Noah reports a decrease in the number of voids per day from every 30 minutes to a hour or longer during the day LTG Duration 8 weeks Assessment Summary Assessment Noah is a 69 year old male referred to PT with over active bladder, urgency, nocturia and frequency with urge incontinence. He has a history of aquablation procedure Mar 2024. He also reports retrograde ejaculation . He has a past medical history of sleep apnea and did undergo a procedure to install the Inspire. This was activated on 06/27/24 and Noah has noted he has gotten 3 nights of 8 hours sleep which he is very encouraged by. When reviewing bladder irritants Noah reports he drinks a 12 cup pot of coffee every morning. He does this as he is typically so tired during the day from being woken up so much at night with sleep apnea. With the inspire and the goal of increasing his sleep duration we discussed starting to cut back on the coffee and that amount of coffee can significantly contribute to bladder irritation. Noah was given a bladder diary today to begin recording his voids as he feels he currently voids approx every 30 min. He was educated in the urge deference technique to help with better control when walking to the bathroom. The goal will be to work on bladder retraining and increase the time between voids for him. With pelvic floor examination Noah presents with decreased endurance of the pelvic floor. He is able to hold approx 5 seconds for repetitive contractions of the pelvic floor. He needed verbal cues to recruit the anterior pelvic floor. Noah may also be a candidate for percutaneous tibial nerve stimulation and he will be educated on this in the clinic and we can do a trial of it here for him as well. Noah is a good candidate for pelvic floor PT Physical Therapy Plan Frequency and Duration Frequency of Treatment 1x/Week Duration of treatment (weeks) 8 Plan of Care Start Date 07/06/24 Plan of Care End Date 08/31/24 Therapeutic Interventions Therapeutic Interventions Home Exercise Program, Neuromuscular Re-education, Patient/Caregiver Education, Self-Care/Home Management, Therapeutic Exercises Modalities Biofeedback,Electric Stimulation Next Visit Focus/Plan Next Note Type Treatment Note Next Visit Plan review bladder diary, review bladder irritants, see how Noah did with the urge deference technique, pelvic floor endurance exercises
--- NOTE | 2024-07-18 10:41 | PT.OTN ---
Current Diagnoses Overactive bladder (07/18/24) Physical Therapy Treatment Note PT-OP-A Visit Information Start: 07/06/24 08:18 Freq: Status: Active Protocol: Document 07/18/24 09:51 [facility] (Rec: 07/18/24 10:41 [facility] [id number]) Out-Patient Physical Therapy Visit Information Visit Information Visit Type Treatment Note Visit Start Time 09:45 Visit Stop Time 10:30 Visit Number 2 PT-OP-B Current Condition Start: 07/06/24 08:18 Freq: Status: Active Protocol: Document 07/06/24 08:15 [facility] (Rec: 07/06/24 08:44 [facility] [id number]) Current Condition History of Current Condition Onset Date March 2024 Current Complaints urinary urgency, nocturia, retrograde egaculation History of Current Condition pt reports orgasm does not produce any fluid and feels it may be blocked by a blood clot. Aquablasion in march 2024 to remove the prostate due to enlarged prostate that was causing incontinence. Noah notes he is still noting incontinence but he does note he has a much stronger urinary stream and it does not take as long to empty his bladder. Noah reports he drinks a pot of coffee in the am and then drinks 3-4 30 oz of water per day. Leakage is mainly with urgency. He is working on a sleep issue and he has had a surgery to install the inspire now and he is still healing from that. He notes he currently wakes 1 -3 times per night, he has sleep apnea and it makes it difficult to get enought sleep . His inspire was just turned on 06/27/24. So far he has gotten 3 night of 8 hours sleep with it so he is encouraged. PT-OP-C Subjective Start: 07/06/24 08:18 Freq: Status: Active Protocol: Document 07/18/24 09:51 [facility] (Rec: 07/18/24 10:41 [facility] [id number]) OP-PT Subjective Patient Comments Patient Comments pt notes he cut back to 1/2 a pot of coffee but then went back to a full pot of coffee after 3 days. He didn't see any difference. The endurance holds were difficult but the quick ones were okay, the night time voids are decreasing. He can feel the sensation now in his bladder. Accidents are down to 2 total in the last week. He feels like he can hold it long enough to get there. PT-OP-I Pelvic Floor Start: 07/06/24 08:18 Freq: Status: Active Protocol: Document 07/06/24 08:15 [facility] (Rec: 07/06/24 09:23 [facility] [id number]) Pelvic Floor Assessment Urine Pelvic Floor Surgery Yes: Aquablation March 2024 Urinary Symptoms Urge Sensation Voiding Frequency 11-14 times per day Nocturia 2-3 Contraction Ability Voluntary Contraction Weak Voluntary Relaxation Weak Muscle Endurance (Seconds) 5 Comments Pelvic Floor Comments pt was educated on anterior pelvic floor facilitation as this was difficult for him to initiate. He was able to hold x 5 seconds for consequtive repeitions. PT-OP-Q Treatments Start: 07/06/24 08:18 Freq: Status: Active Protocol: Document 07/18/24 09:51 [facility] (Rec: 07/18/24 10:41 [facility] [id number]) Therapeutic Exercises Supine Exercises pelvic floor quick contractions Reps/Minutes x 20 reps ball squeeze with pelvic floor Reps/Minutes x 10 seconds and 10 sec rest Comments pt does better with this as he feels he can breath better Sidelying Exercises clam shells Reps/Minutes sidelying clam shells 2 x 10 each side Self-Care/Home Management Treatment Education Patient Education Home Exercise Program Other Education review of urge deference technique and we went through [place] bladder diary. He was given handouts of his HEP today PT-OP-T Assessment and Plan Start: 07/06/24 08:18 Freq: Status: Active Protocol: Document 07/18/24 09:51 [facility] (Rec: 07/18/24 10:41 [facility] [id number]) Physical Therapy Assessment Goals 3 Impairment pt lacks a HEP for pelvic floor strength and endurance training Non Destructive Testing Specialist Goal (LTG) Noah is Ind with a HEP for pelvic floor strength and endurance training. LTG Duration 8 weeks 2 Impairment Decreased pelvic floor endurance Short Term Goal (STG) Noah is able to sustain a pelvic floor contraction in supine x 10 seconds STG Duration 4 weeks Shelter Goal (LTG) Noah is able to sustain a pelvic floor contraction in standing x 5 sec or greater LTG Duration 8 weeks 1 Impairment urinary urgency and frequency and nocturia Short Term Goal (STG) Noah is edcuated on bladder irritants, urge deference technique and bladder retraining Non Destructive Testing Specialist Goal (LTG) Noah reports a decrease in the number of voids per day from every 30 minutes to a hour or longer during the day pt did better this past week and voided closer to every hour and he was able to sleep until 4 am this am to void. He made it one time a entire night that he didn't have to wake up. Assessment Summary Assessment Noah is doing better this week with decreased leakage and improved sleep. He is voiding closer to every hour instead of every 1/2 hour now. I added in adductor assist to help with long sustained contractions of the pelvic floor and he felt this was helpful for his long holds Physical Therapy Plan Frequency and Duration Frequency of Treatment 1x/Week Duration of treatment (weeks) 8 Plan of Care Start Date 07/06/24 Plan of Care End Date 08/31/24 Next Visit Focus/Plan Next Note Type Treatment Note Next Visit Plan continue x 1 visit to ensure Ind with HEP and review bladder diary, urge deference technique
--- NOTE | 2024-08-08 09:10 | PT.OTN ---
Current Diagnoses Overactive bladder (08/08/24) Physical Therapy Treatment Note PT-OP-A Visit Information Start: 07/06/24 08:18 Freq: Status: Active Protocol: Document 08/08/24 08:14 [facility] (Rec: 08/08/24 09:10 [facility] [id number]) Out-Patient Physical Therapy Visit Information Visit Information Visit Type Treatment Note Visit Start Time 08:15 Visit Stop Time 09:00 Visit Number 3 PT-OP-B Current Condition Start: 07/06/24 08:18 Freq: Status: Active Protocol: Document 07/06/24 08:15 [facility] (Rec: 07/06/24 08:44 [facility] [id number]) Current Condition History of Current Condition Onset Date March 2024 Current Complaints urinary urgency, nocturia, retrograde egaculation History of Current Condition pt reports orgasm does not produce any fluid and feels it may be blocked by a blood clot. Aquablasion in march 2024 to remove the prostate due to enlarged prostate that was causing incontinence. Noah notes he is still noting incontinence but he does note he has a much stronger urinary stream and it does not take as long to empty his bladder. Noah reports he drinks a pot of coffee in the am and then drinks 3-4 30 oz of water per day. Leakage is mainly with urgency. He is working on a sleep issue and he has had a surgery to install the inspire now and he is still healing from that. He notes he currently wakes 1 -3 times per night, he has sleep apnea and it makes it difficult to get enought sleep . His inspire was just turned on 06/27/24. So far he has gotten 3 night of 8 hours sleep with it so he is encouraged. PT-OP-C Subjective Start: 07/06/24 08:18 Freq: Status: Active Protocol: Document 08/08/24 08:14 [facility] (Rec: 08/08/24 09:10 [facility] [id number]) OP-PT Subjective Patient Comments Patient Comments Noah notes he is doing better with urgency and nocturia. He feels better with more sleep and feels that he is now able to hold his pelvic floor contractions for longer PT-OP-I Pelvic Floor Start: 07/06/24 08:18 Freq: Status: Active Protocol: Document 07/06/24 08:15 [facility] (Rec: 07/06/24 09:23 [facility] [id number]) Pelvic Floor Assessment Urine Pelvic Floor Surgery Yes: Aquablation March 2024 Urinary Symptoms Urge Sensation Voiding Frequency 11-14 times per day Nocturia 2-3 Contraction Ability Voluntary Contraction Weak Voluntary Relaxation Weak Muscle Endurance (Seconds) 5 Comments Pelvic Floor Comments pt was educated on anterior pelvic floor facilitation as this was difficult for him to initiate. He was able to hold x 5 seconds for consequtive repeitions. PT-OP-Q Treatments Start: 07/06/24 08:18 Freq: Status: Active Protocol: Document 08/08/24 08:14 [facility] (Rec: 08/08/24 09:10 [facility] [id number]) Therapeutic Exercises Supine Exercises hamstring stretch B Reps/Minutes hold 1 min each pelvic floor quick contractions Reps/Minutes x 20 reps ball squeeze with pelvic floor Reps/Minutes x 10 seconds and 10 sec rest Sidelying Exercises clam shells Reps/Minutes sidelying clam shells 2 x 10 each side Self-Care/Home Management Treatment Education Patient Education Home Exercise Program Other Education review of bladder irritants, urge deference technique, HEP PT-OP-T Assessment and Plan Start: 07/06/24 08:18 Freq: Status: Active Protocol: Document 08/08/24 08:14 [facility] (Rec: 08/08/24 09:10 [facility] [id number]) Physical Therapy Assessment Goals 3 Impairment pt lacks a HEP for pelvic floor strength and endurance training [employer] Goal (LTG) Noah is Ind with a HEP for pelvic floor strength and endurance training. Goal met LTG Duration 8 weeks 2 Impairment Decreased pelvic floor endurance Short Term Goal (STG) Noah is able to sustain a pelvic floor contraction in supine x 10 seconds goal met with adductor assist STG Duration 4 weeks [employer] Goal (LTG) Noah is able to sustain a pelvic floor contraction in standing x 5 sec or greater Noah is able to contract his pelvic floor in sitting x 5 seconds LTG Duration 8 weeks 1 Impairment urinary urgency and frequency and nocturia Short Term Goal (STG) Noah is edcuated on bladder irritants, urge deference technique and bladder retraining Goal met Alf Goal (LTG) Noah reports a decrease in the number of voids per day from every 30 minutes to a hour or longer during the day pt did better this past week and voided closer to every hour and he was able to sleep until 4 am this am to void. He made it one time a entire night that he didn't have to wake up. Good progress, sleep is better and he is waking 1-2 times per night, he notes the am he voids closer to every 30 min as he is getting in his fluids and then as the day progresses he can extend his voids to every 2-3 hours Assessment Summary Assessment pt notes he has more control over bowel movements and with loose stool he feels he can make it to the restroom better . Noah notes he is drinking a lot of water to keep the cramping down. He is feeling urgency is decreased. He goes more frequently in the am but in the afternoon he can go to 2-3 hours. He has more sensation in his bladder. He is doing much better with his sleep getting 8-9 hours sleep and he notes he had a hour of REM sleep last night. Overall his symptoms of urgency are decreasing and with his increase in sleep the nocturia is not as much of a problem. He is is still experiencing the retrograde ejaculation which he would like to further pursue treatments for. At this point he is independent with his home pelvic floor strengthening program and he will be discharged from PT Physical Therapy Plan Frequency and Duration Frequency of Treatment 1x/Week Duration of treatment (weeks) 8 Plan of Care Start Date 07/06/24 Plan of Care End Date 08/31/24 Discharge Physical Therapy Discharge Comments Noah is progressing well with his goals and is independent with his HEP at this time. He will be discharged from PT
== END 2024-08-10 08:39 | disposition home or self-care (01) ==
LOC: PHYS 08:15
PROVIDERS: Family Provider Family Medicine; PCP Family Medicine; Referring Provider Urology; Visit Provider Urology
DX: N32.81 Overactive bladder (principal)
CPT/HCPCS: 97110; 97163; 97535

== ENCOUNTER → 2024-09-20 10:30 | Outpatient (CLI) | payer MEDICARE, SELFPAY ==
[2024-09-20 11:16] LABS: Alanine Aminotransferase 47 IU/L (<50); Albumin 4.5 g/dL (3.5-5.0); Albumin Globulin Ratio 1.6 (1.0-2.8); Alkaline Phosphatase 81 U/L (38-126); Aspartate Aminotransferase 46 IU/L (17-59); BUN Creatinine Ratio 14.5 (6-22); Bilirubin Total 0.5 mg/dL (0.2-1.3); Blood Urea Nitrogen 12 mg/dL (9-20); Calcium 9.3 mg/dL (8.4-10.2); Carbon Dioxide 28 mmol/L (22-32); Chloride 103 mmol/L (98-107); Estimated Glomerular Filt Rate > 60 mL/min (>60); Globulin 2.8 g/dL (1.7-4.1); Glucose 77 mg/dL (70-99); HEMOLYSIS 17 (0-50); Potassium 4.6 mmol/L (3.4-5.1); Sodium 138 mmol/L (137-145); Total Protein 7.3 g/dL (6.3-8.2)
== END ==
PROVIDERS: Family Provider Family Medicine; PCP Family Medicine; Referring Provider Family Medicine; Visit Provider Family Medicine
DX: E87.8 Other disorders of electrolyte and fluid balance, not elsewhere classified (principal)
CPT/HCPCS: 36415; 80053

== ENCOUNTER → 2024-10-20 12:39 | Outpatient (CLI) | payer MEDICARE, MEDICAID, SELFPAY ==
--- NOTE | 2024-10-20 12:44 | DI.RAD.S_ITS ---
PROCEDURE: XR HIP W PEL IF DONE LT 2V INDICATIONS: Severe LT hip pain, 1 wk TECHNIQUE: AP view of the pelvis, lateral view of the left hip COMPARISON: None. FINDINGS: No acute fracture or dislocation. Mild bilateral hip osteoarthritis, in conjunction with CAM morphology of the proximal femurs. No femoral head sclerosis to suggest osteonecrosis. The sacroiliac joints are preserved. The pubic symphysis is preserved. Pelvic phleboliths. Heterotopic ossification projecting over the upper sacrum, which may represent a bridging osteophyte. IMPRESSION: Mild bilateral hip osteoarthritis. Dictated by: Augie Goss M.D. on 10/20/2024 at 17:03 Approved by: Augie Goss M.D. on 10/20/2024 at 17:05
== END ==
PROVIDERS: Family Provider Family Medicine; PCP Family Medicine; Referring Provider Family Medicine; Visit Provider Family Medicine
DX: M16.0 Bilateral primary osteoarthritis of hip (principal); M25.552 Pain in left hip
CPT/HCPCS: 73502

== ENCOUNTER → 2024-10-31 09:12 | Outpatient (CLI) | payer MEDICARE, SELFPAY ==
[2024-10-31 10:07] LABS: Add Manual Diff / Slide Review NO; Basophils Absolute Auto 0 /uL (0-100); Basophils Percent Auto 0.4 % (0-2); Eosinophils Absolute Auto 0 /uL (0-450); Eosinophils Percent Auto 0.5 % (2-4); Hematocrit 44.3 % (41-53); Hemoglobin 15.3 g/dL (13.5-17.5); Lymphocytes Absolute Auto 1200 /uL (1100-4500); Lymphocytes Percent Auto 16.5 % (25-40); Mean Corpuscular HGB Conc 34.5 % (30-36); Mean Corpuscular Hemoglobin 32.8 PG (26-34); Mean Corpuscular Volume 95.2 fL (80-100); Monocytes Absolute Auto 500 /uL (0-900); Monocytes Percent Auto 6.6 % (3-14); Neutrophils Absolute Auto 5300 /uL (1500-7000); Platelet Count 183 X10^3/uL (150-400); Red Blood Cell Count 4.65 X10^6/uL (4.5-5.9); Red Cell Distribution Width 13.4 % (11.6-14.8)
[2024-10-31 11:00] LABS: TSH w/ Reflex to FT4 1.87 uIU/mL (0.47-4.68)
[2024-10-31 13:30] LABS: Alanine Aminotransferase 30 IU/L (<50); Albumin 4.6 g/dL (3.5-5.0); Albumin Globulin Ratio 1.9 (1.0-2.8); Alkaline Phosphatase 74 U/L (38-126); Aspartate Aminotransferase 32 IU/L (17-59); Bilirubin Total 0.4 mg/dL (0.2-1.3); Blood Urea Nitrogen 10 mg/dL (9-20); Calcium 9.7 mg/dL (8.4-10.2); Carbon Dioxide 26 mmol/L (22-32); Chloride 104 mmol/L (98-107); Cholesterol 175 mg/dL (140-199); Estimated Glomerular Filt Rate > 60 mL/min (>60); Globulin 2.4 g/dL (1.7-4.1); Glucose 76 mg/dL (70-99); HDL Cholesterol 44 mg/dL (40-60); HEMOLYSIS < 15 (0-50); LDL Cholesterol Calculated 103 mg/dL (<100); Potassium 4.2 mmol/L (3.4-5.1); Sodium 139 mmol/L (137-145); Triglycerides 142 mg/dL (35-150)
== END ==
PROVIDERS: PCP Family Medicine; Referring Provider Family Medicine; Visit Provider Family Medicine
DX: Z00.00 Encounter for general adult medical examination without abnormal findings (principal); E78.5 Hyperlipidemia, unspecified; E16.2 Hypoglycemia, unspecified; F41.8 Other specified anxiety disorders; N40.1 Benign prostatic hyperplasia with lower urinary tract symptoms
CPT/HCPCS: 36415; 80053; 80061; 84443; 85025